=== PATIENT | female | born 1965 | race Caucasian/White ===

== ENCOUNTER 2017-06-24 09:13 | Inpatient (IN) | payer BC ==
[2017-06-07 12:49] VITALS: BMI 32.0
--- NOTE | 2017-06-07 13:32 | PAT Medication Instructions ---
Service Date Jun 07, 2017. Current Home Medication List Alprazolam (Xanax), 0.5 MG PO TID PRN for Anxiety/Agitation Atorvastatin (Lipitor), 1 TAB PO QAM Gabapentin (Neurontin), 300 MG PO TID PRN for Pain Hydrocodone/Acetaminophen 10MG/325MG ([place] 10MG/325MG), 1 TAB PO Q8 PRN for Pain Levothyroxine Sodium (Synthroid), 1 TAB PO QAM Lisinopril/Hctz (Zestoretic 20MG/25MG), 1 TAB PO QAM Topiramate (Topamax), 1 TAB PO BID Venlafaxine Hcl (Effexor), 75 MG PO QAM Venlafaxine Hcl (Effexor Extended Rel), 1 CAP PO QAM Medication Instructions For Your Scheduled Surgery - Hold the following medications the morning of surgery: Lisinopril/Hctz (Zestoretic 20MG/25MG), 1 TAB PO QAM - Take the following medications the morning of surgery with a sip of water OTHERWISE NOTHING TO EAT OR DRINK AFTER MIDNIGHT: Gabapentin (Neurontin), 300 MG PO TID PRN for Pain Hydrocodone/Acetaminophen 10MG/325MG ([place] 10MG/325MG), 1 TAB PO Q8 PRN for Pain ( may take if needed up to 4 hours prior to surgery) Atorvastatin (Lipitor), 1 TAB PO QAM Levothyroxine Sodium (Synthroid), 1 TAB PO QAM Venlafaxine Hcl (Effexor), 75 MG PO QAM Venlafaxine Hcl (Effexor Extended Rel), 1 CAP PO QAM Topiramate (Topamax), 1 TAB PO BID Alprazolam (Xanax), 0.5 MG PO TID PRN for Anxiety/Agitation - Take the following medications as scheduled the night before surgery: Gabapentin (Neurontin), 300 MG PO TID PRN for Pain Hydrocodone/Acetaminophen 10MG/325MG ([place] 10MG/325MG), 1 TAB PO Q8 PRN for Pain Topiramate (Topamax), 1 TAB PO BID Alprazolam (Xanax), 0.5 MG PO TID PRN for Anxiety/Agitation If you have any questions please call us at [phone] or [phone] or [phone]
[2017-06-07 14:13] LABS: BASO % 1.2 %; BASO ABS # 0.07 K/uL (0-0.2); COMPLETE YES; HEMATOCRIT 38.3 % (37-47); IG% 0.2 %; LYMPH % 33.2 %; LYMPH ABS # 1.92 K/uL (1.2-3.4); MEAN CELL VOLUME 95.3 fL (80-100); MEAN CORPUSCULAR HEMOGLOBIN 31.6 pg (25-34); MEAN CORPUSCULAR HGB CONC 33.2 g/dl (32-36); MEAN PLATELET VOLUME 9.3 fL (7.4-10.4); MONO % 9.2 %; NEUT % 52.2 %; PLATELET COUNT 398 K/uL (130-400); RED BLOOD COUNT 4.02 M/uL (4.2-5.4); WHITE BLOOD COUNT 5.78 K/uL (4.8-10.8)
--- NOTE | 2017-06-07 14:13 | DIAGNOSTIC IMAGING REPORT ---
CHEST 2 VIEWS ROUTINE CLINICAL HISTORY: 51 years-old Female presenting with preoperative assessment.. TECHNIQUE: PA and lateral views of the chest were obtained. COMPARISON: None. FINDINGS: Cardiomediastinal silhouette normal. Lungs and pleural spaces clear. Osseous structures and upper abdomen normal. IMPRESSION: 1. No acute cardiopulmonary disease. Electronically signed by: Sukhdev Hall 06/07/2017 2:11 PM Dictated Date/Time: 06/07/2017 2:11 PM
[2017-06-07 14:40] LABS: URINE APPEARANCE CLEAR (CLEAR); URINE BILIRUBIN NEG (NEG); URINE COLOR YELLOW; URINE EPITHELIAL CELL AUTO >30 /lpf (0-5); URINE NITRITE NEG (NEG); URINE PH 7.5 (4.5-7.5); URINE SPECIFIC GRAVITY 1.012 (1.000-1.030); UROBILINOGEN NEG (NEG)
[2017-06-07 14:48] LABS: MANUAL MICROSCOPIC REQUIRED? NO; REVIEW REQ? NO
[2017-06-07 15:31] LABS: CALCIUM 9.2 mg/dl (8.5-10.1); CREATININE 1.1 mg/dl (0.60-1.20); POTASSIUM 3.6 mmol/L (3.5-5.1)
[~2017-06-24] VITALS: Ht 160 cm; Wt 83.1 kg
[2017-06-24] VITALS (11 sets, daily range): BP systolic 86–130; BP diastolic 47–74; PULSE 62–96; TEMP 36.4–37; O2SAT 95–100; Ht 160 cm; Wt 83.1 kg
[~2017-06-24 09:13] MED LIST: ALPR-411 PO; ATOR10TA88 PO; CEFAZOLIN 2000 MG/60 ML D5W IV SCH; GABA-113 PO; HYDR-4079 PO; LACTATED RINGER'S 1000ML 1,000 ML IV SCH; LEVO100T PO; LISI-788 PO; TOPI50TA16 PO; VENL150C56 PO; VENL75TA4 PO
--- NOTE | 2017-06-24 10:15 | History & Physical Bridge Note ---
H&P Re-Evaluation Bridge Note: I have examined the patient, reviewed the History & Physical and in the interval since the performance of the History & Physical I have noted the following changes of clinical significance: No changes noted
[2017-06-24] MEDS ORDERED: MIDAZOLAM HCL 1 MG/ML 2ML VIAL ONE (10:16)
--- NOTE | 2017-06-24 10:16 | History and Physical ---
History & Physical Date Jun 24, 2017. Chief Complaint back and leg pain History of Present Illness The patient is a 51 year old female with complaints of Additional History Hepatic Disease: No Endocrine Disorder: No Kidney Disease: No Hypertension: Yes Heart Disease: No Bleeding Tendencies: No Infectious Diseases: No Allergies Coded Allergies: No Known Allergies (Unverified , 06/24/17) Home Medications Scheduled Atorvastatin (Lipitor), 1 TAB PO QAM Levothyroxine Sodium (Synthroid), 1 TAB PO QAM Lisinopril/Hctz (Zestoretic 20MG/25MG), 1 TAB PO QAM Topiramate (Topamax), 1 TAB PO BID Venlafaxine Hcl (Effexor), 75 MG PO QAM Venlafaxine Hcl (Effexor Extended Rel), 1 CAP PO QAM Scheduled PRN Alprazolam (Xanax), 0.5 MG PO TID PRN for Anxiety/Agitation Gabapentin (Neurontin), 300 MG PO TID PRN for Pain Hydrocodone/Acetaminophen 10MG/325MG ([place] 10MG/325MG), 1 TAB PO Q8 PRN for Pain Physical Examination Skin: warm/dry, no rash Eyes: normal inspection, EOMI, sclerae normal ENT: normal ENT inspection, pharynx normal Head: normocephalic, atraumatic Neck: supple, no adenopathy, trachea midline Respiratory/Chest: lungs clear, normal breath sounds, no respiratory distress Cardiovascular: regular rate, rhythm, no edema, no murmur Abdomen / GI: normal bowel sounds, non tender Back: normal inspection Extremities: normal inspection, normal range of motion Neurologic/Psych: no motor/sensory deficits, alert, normal reflexes, oriented x 3 Diagnosis Lumbar stenosis Plan of Treatment Lumbar decompression fusion L4 5 L5-S1
[2017-06-24] MEDS ORDERED: FENTANYL CITRATE INJ 50 MCG/1 ML 2 ML VIAL ONE ×4 (10:17→12:43)
[2017-06-24] MEDS ORDERED: BACITRACIN 50000 UNIT VIAL ONE (10:40)
[2017-06-24] MEDS ORDERED: SODIUM CHLORIDE 0.9% PF 50 ML VIAL ONE (10:40)
[2017-06-24] MEDS ORDERED: BUPIVACAINE/EPINEPHRINE 0.5% MPF 1:200,000 10 ML VIAL ONE (10:40)
[2017-06-24] MEDS ORDERED: PROMETHAZINE HCL INJ 12.5 MG in SODIUM CHLORIDE 0.9% 50ML 50 ML IV PRN ×2 (10:45→12:45)
[2017-06-24] MEDS ORDERED: HYDROmorphone INJ 1 MG/ML SYR IV PRN (10:45)
[2017-06-24] MEDS ORDERED: ATROPINE SULFATE 0.1 MG/ML 5ML SYR IV PRN (10:45)
[2017-06-24] MEDS ORDERED: ONDANSETRON INJ 2 MG/ML 2 ML VIAL IV PRN (10:45)
[2017-06-24] MEDS ORDERED: EpHEDrine SULFATE INJ 50 MG/ML AMP IV PRN (10:45)
[2017-06-24] MEDS ORDERED: HYDROmorphone INJ 2 MG/ML SYR/VIAL ONE (11:23)
[2017-06-24] MEDS ORDERED: ROCURONIUM BROMIDE 10 MG/ML 5 ML VIAL ONE (11:46)
[2017-06-24] MEDS ORDERED: LIDOCAINE HCL 2% 2 ML VIAL (20MG/ML) ONE (11:46)
[2017-06-24] MEDS ORDERED: PROPOFOL IV EMULSION 10 MG/ML 20 ML VIAL IV ONE (11:46)
[2017-06-24] MEDS ORDERED: ESMOLOL HCL 10 MG/ML 10 ML VIAL ONE (11:46)
[2017-06-24] MEDS ORDERED: DEXAMETHASONE SOD INJ 4 MG/ML VIAL ONE (11:46)
[2017-06-24] MEDS ORDERED: LABETALOL HCL IV 5 MG/ML 20ML IV ONE (11:46)
[2017-06-24] MEDS ORDERED: FLOSEAL HEMOSTATIC MATRIX 10ML TOP ONE (12:30)
[2017-06-24] MEDS ORDERED: SODIUM CHLORIDE 0.9% 1000ML 1,000 ML IV SCH ×2 (12:40→23:45)
[2017-06-24] MEDS ORDERED: ACETAMINOPHEN IV 100 ML IV PRN (12:45)
[2017-06-24] MEDS ORDERED: DO NOT ADMINISTER PNEUMOCOCCAL VACCINE PRN ×2 (12:45)
[2017-06-24] MEDS ORDERED: ACETAMINOPHEN 500 MG TAB PO PRN (12:45)
[2017-06-24] MEDS ORDERED: hydrOXYzine HCL 25 MG TAB PO PRN (12:45)
[2017-06-24] MEDS ORDERED: FAMOTIDINE 20 MG TAB PO PRN (12:45)
[2017-06-24] MEDS ORDERED: HYDROmorphone INJ 0.5 MG/0.5 ML SYR IV PRN (12:45)
[2017-06-24] MEDS ORDERED: ALUMINUM/MAGNESIUM SUSP 30 ML UDC PO PRN (12:45)
[2017-06-24] MEDS ORDERED: METOCLOPRAMIDE HCL INJ 5 MG/ML 2 ML VIAL IV PRN (12:45)
[2017-06-24] MEDS ORDERED: MAGNESIUM HYDROXIDE SUSP 30 ML UDC PO PRN (12:45)
[2017-06-24] MEDS ORDERED: SOD PHOSPHATE/SOD BIPHOSPHATE ENEMA 132 ML BTL PR PRN (12:45)
[2017-06-24] MEDS ORDERED: DO NOT ADMINISTER FLU VACCINE PRN ×3 (12:45)
[2017-06-24] MEDS ORDERED: GABAPENTIN 300 MG CAP PO PRN (12:45)
[2017-06-24] MEDS ORDERED: DC PCA PRN (12:45)
[2017-06-24] MEDS ORDERED: LORAZEPAM INJ 0.5 MG in SYRINGE 0 ML IV PRN (12:45)
[2017-06-24] MEDS ORDERED: ALPRAZOLAM 0.5 MG TAB PO PRN (12:45)
[2017-06-24] MEDS ORDERED: NALOXONE HCL 0.4 MG/1 ML VIAL/CARP IV PRN ×2 (12:45)
[2017-06-24] MEDS ORDERED: BISACODYL 10 MG SUPP PR PRN (12:45)
--- NOTE | 2017-06-24 12:48 | [facility] Operative Report ---
Operative Report Operative Date Jun 24, 2017. Pre-Operative Diagnosis Spinal Stenosis Post-Operative Diagnosis Spinal Stenosis Procedure(s) Performed #1 lumbar decompression medial facetectomy foraminotomy L4 5 L5-S1. #2 posterior spinal fusion L4 5 L5-S1. #3 posterior segmental instrumentation L4 5 L5-S1. #4 interbody fusion L5-S1. #5 placement of peek cage 12 x 22 mm L5-S1. #6 placement of locally harvested morcellized autograft posterior gutters. #7 placement infuse collagen sponge combined Master graft in the posterior lateral gutters Della bone graft in the interbody space. Surgeon Dr. Donald Lynn Locator Surgeon(s) Vanesa Carbajal PA-C Findings Spinal stenosis with herniated nucleus pulposus. Specimens none per surgeon Description of Procedure Patient was met with preoperatively case discussed all questions are dressed. Patient was then taken to the operative suite after undergoing intubation placed in the prone position on the Blade table on top of the Kenny frame. Lumbar spine prepped and draped no sterile fashion. Sharp dissection with the assistance of Bovie cautery performed onto an exposing the lamina and transverse processes of L4-L5 and the sacral alar bilaterally. From a caudal to cephalad fashion complete laminectomy of L5 and L4 performed including medial facetectomies foraminotomies. We also dressed massive disc herniation L 5 S1 on the right. Pedicle screws were then placed in L4 L5 S1 levels bilaterally with assistance of fluoroscopy Lipo placed sized xiomy placed. Through a transforaminal approach on the right complete discectomy of L5-S1 was performed and plate created to subcortical bleeding bone and a 12 x 22 mm peek cage filled with Della bone graft tapped in position. Brought in and compressed locked and final position bilaterally. Transverse processes of L4 L5 S1 levels burred to subcortical bleeding bone. Infuse bone sponge mask graft locally harvested morcellized autograft placed in the posterior lateral gutters. 15 round EARLENE drain inserted. Incision closed with 1 Vicryl in the fascia 2-0 Vicryl subcutaneously and for Monocryl for final skin closure. Sterile dressing and Steri-Strips placed. Patient awakened taken to PACU stable condition. Please note Vanesa Monroe present throughout the entire procedure involved in patient positioning complex portions of the procedure and final skin closure. I attest to the content of the Intraoperative Record and any orders documented therein. Any exceptions are noted below.
--- NOTE | 2017-06-24 12:53 | DIAGNOSTIC IMAGING REPORT ---
LUMBAR SPINE 2 OR 3 VIEW CLINICAL HISTORY: 51 years-old Female presenting with L4-S1 DECOMPRESSION. TECHNIQUE: 2 fluoroscopic spot image(s) obtained as part of intraoperative procedure. COMPARISON: None. FINDINGS/IMPRESSION: Frontal and lateral views of the lumbar spine demonstrate bilateral transpedicular screw and xiomy fixation of L4-S1 with interbody spacer at L5-S1. Anatomic alignment grossly maintained. Please see surgical report for further details. Fluoroscopy dosage (mGy): Not available. Fluoroscopy time: 23.6 seconds. Number of fluoroscopic spot images: 2. Electronically signed by: Sukhdev Hall M.D. 06/24/2017 12:51 PM Dictated Date/Time: 06/24/2017 12:51 PM
[2017-06-24] MEDS ORDERED: HYDROmorphone HCL 0.5MG/ML 50 ML CASSETTE ONE (12:58)
[2017-06-24] MEDS: FENTANYL CITRATE INJ 50 MCG/1 ML 2 ML VIAL IV PRN ×4 (13:10→13:31)
[2017-06-24] MEDS ORDERED: NEOSTIGMINE METHYLSULFATE 1 MG/ML 10ML VIAL ONE (13:44)
[2017-06-24] MEDS ORDERED: ONDANSETRON INJ 2 MG/ML 2 ML VIAL ONE (13:44)
[2017-06-24] MEDS ORDERED: PHENYLEPHRINE 100MCG/ML 5ML SYR ONE (13:44)
[2017-06-24] MEDS ORDERED: GLYCOPYRROLATE INJ 0.2 MG/ML VIAL ONE (13:44)
[2017-06-24] MEDS ORDERED: KETOROLAC TROMETHAMINE 30 MG/ML VIAL ONE (13:44)
--- NOTE | 2017-06-24 13:44 | Anesthesiology Progress Note ---
Anesthesia Post Op Note Date & Time Jun 24, 2017 at 13:43 Vital Signs Pain Intensity: 5 Vital Signs Past 12 Hours Date Time Temp Pulse Resp B/P (MAP) Pulse Ox O2 Delivery O2 Flow Rate FiO2 06/24/17 13:35 85 14 94/52 (64) 100 Nasal Cannula 4 06/24/17 13:25 87 12 111/64 100 Nasal Cannula 4 06/24/17 13:15 84 12 98/51 (69) 99 Oxymask 8 06/24/17 13:05 81 20 118/68 100 Oxymask 10 06/24/17 12:56 36.4 88 16 128/96 95 Oxymask 10 06/24/17 10:09 36.9 75 18 130/74 100 Room Air Notes Mental Status: alert / awake / arousable, participated in evaluation Pt Amnestic to Procedure: Yes Nausea / Vomiting: adequately controlled Pain: adequately controlled Airway Patency, RR, SpO2: stable & adequate BP & HR: stable & adequate Hydration State: stable & adequate Anesthetic Complications: no major complications apparent
[2017-06-24] MEDS: HYDROmorphone HCL 0.5MG/ML 50 ML CASSETTE IV PRN ×3 (14:03→22:47)
[2017-06-24] MEDS: LACTATED RINGER'S 1000ML 1,000 ML IV SCH ×2 (14:38→21:27)
[2017-06-24] MEDS: LISINOPRIL/HCTZ 20/25MG TAB PO SCH (15:30)
[2017-06-24] MEDS: CEFAZOLIN IV 2,000 MG in DEXTROSE 5% 50ML 50 ML IV SCH (18:14)
[2017-06-24] MEDS: DEXAMETHASONE INJ 6 MG in SYRINGE 0 ML IV SCH (18:15)
[2017-06-24] MEDS: ATORVASTATIN 10 MG TAB PO SCH (21:27)
[2017-06-24] MEDS: DOCUSATE SODIUM/SENNA 50/8.6MG TAB PO SCH (21:28)
[2017-06-24] MEDS: TOPIRAMATE 25 MG TAB PO SCH (21:28)
[2017-06-24] MEDS ORDERED: NURSING VERBAL MED ORDER ONE (23:30)
[2017-06-24] MEDS ORDERED: SODIUM CHLORIDE 0.9% 1000ML 1,000 ML IV ONE (23:45)
[2017-06-25] MEDS ORDERED: LACTATED RINGER'S 1000ML 1,000 ML IV ONE (00:15)
[2017-06-25] MEDS: DEXAMETHASONE INJ 6 MG in SYRINGE 0 ML IV SCH ×2 (01:33→10:39)
[2017-06-25] MEDS: CEFAZOLIN IV 2,000 MG in DEXTROSE 5% 50ML 50 ML IV SCH (01:33)
[2017-06-25 03:12] VITALS: BP 116/76; PULSE 77; TEMP 36.8; O2SAT 91
[2017-06-25] MEDS ORDERED: SODIUM CHLORIDE 0.9% 1000ML 1,000 ML IV SCH (03:45)
[2017-06-25] MEDS: LACTATED RINGER'S 1000ML 1,000 ML IV SCH (04:51)
[2017-06-25] MEDS ORDERED: HYDROmorphone INJ 0.5 MG/0.5 ML SYR IV PRN (06:00)
[2017-06-25] MEDS ORDERED: DC PCA SCH (06:00)
[2017-06-25] MEDS ORDERED: HYDROmorphone INJ 1 MG/ML SYR IV PRN (06:00)
[2017-06-25 06:02] LABS: BASO % 0.1 %; BASO ABS # 0.01 K/uL (0-0.2); COMPLETE YES; HEMATOCRIT 30.9 % (37-47); IG% 0.2 %; LYMPH % 6.2 %; LYMPH ABS # 0.91 K/uL (1.2-3.4); MEAN CELL VOLUME 95.1 fL (80-100); MEAN CORPUSCULAR HGB CONC 33.7 g/dl (32-36); MEAN PLATELET VOLUME 9.8 fL (7.4-10.4); MONO % 4.3 %; NEUT % 89.2 %; PLATELET COUNT 303 K/uL (130-400); RED BLOOD COUNT 3.25 M/uL (4.2-5.4); WHITE BLOOD COUNT 14.65 K/uL (4.8-10.8)
[2017-06-25] MEDS: LEVOTHYROXINE 100 MCG TAB PO SCH (06:05)
[2017-06-25] MEDS ORDERED: NURSING VERBAL MED ORDER ONE (06:15)
[2017-06-25 06:42] LABS: CALCIUM 8.3 mg/dl (8.5-10.1); CREATININE 1.5 mg/dl (0.60-1.20); POTASSIUM 3.7 mmol/L (3.5-5.1)
[2017-06-25] MEDS ORDERED: RXC5 PO (07:39)
--- NOTE | 2017-06-25 07:40 | Discharge Instructions ---
Discharge Instructions Date of Service Jun 25, 2017. Admission Reason for Admission: Spinal Stenosis Discharge Discharge Diagnosis / Problem: lumbar stenosis Discharge Goals Goal(s): Improve function Activity Recommendations Activity Limitations: per Instructions/Follow-up section . Instructions / Follow-Up Instructions / Follow-Up ACTIVITY RECOMMENDATIONS: SELF CARE INSTRUCTIONS AFTER THORACIC/LUMBAR FUSIONS 1. You may walk to your tolerance. It is good exercise for your legs and back. Expect some back and intermittent leg aches and pains. 2. You may perform "counter-top" level activities (make a sandwich, anibal with a project, etc.). 3. No bending or lifting of more than 10 pounds or back twisting of any nature (roll like a log when turning in bed). 4. You may ride in a car for 20-30 minutes at a time. No driving until after your first visit with your doctor. 5. Frequent changes of position and restricting sitting to 30 minutes at a time will help limit the amount of back spasms and stiffness you may experience. 6. You may discontinue the use of ambulatory aids (cane, crutches, etc.) once your strength and confidence allow. 7. You may embedded software development engineer the shower and let water strike your incision when you arrive home at least once daily. Do not take a tub bath, sit in a hot tub or go into a swimming pool until after your first recheck in the office. SPECIAL CARE INSTRUCTIONS: VERY IMPORTANT TO READ AND REVIEW A. Your surgical incision has been closed with a cosmetic suture under the skin that will dissolve in about 6 weeks. In 14 days, you can use a pair of clean scissors and cut the suture that is left outside of the skin at the ends of your incision. 1. The small skin tapes can be removed 7 days after surgery if they have not fallen off by that point. 2. You may keep the wound open to air as much as possible to promote healing after post-op day number 5 unless told otherwise by your doctor. 3. If you think the wound looks like it is becoming infected (redness or worsening drainage) and/or you are experiencing fever, chill or worsening back pain and muscle spasms, contact the office so that we may evaluate you as soon as possible. B. Complications are uncommon, but please contact us if you have any signs or symptoms of: 1. wound infection (fever higher than 102.5 degrees F, redness, separation of wound, drainage, or increasing pain from the incision) 2. blood clots in legs (pain, swelling, redness and warmth in legs) 3. urinary tract infection (fever higher than 102.5 degrees F, burning upon urination or increased frequency of urination) 4. nerve problems (inability to walk on your toes or heels, numbness, loss of bowel or bladder control) 5. any other symptoms that concern you C. Please call the office at if you have any concerns or questions about your operation or recovery. D. No smoking! Smoking drastically decreases the chance of a solid fusion. E. Do not take any anti-inflammatory medications (Indocin, Advil, Motrin, Aspirin, Naprosyn, etc.) as these may inhibit the chance of a solid fusion. Tylenol is okay to take for pain. MANAGING PAIN AFTER SPINAL SURGERY 1. Narcotic medication is intended for short-term use and will be provided for surgical pain. Surgical pain usually lasts for a period of 4-6 weeks. Narcotic medication includes Percocet, Vicodin, Darvocet, Tylenol #3 or Lortab. 2. Longer-term pain is more appropriately treated with non-narcotic medication such as Tylenol ES. 3. Muscle spasm is not appropriately treated with narcotics. Muscle relaxers such as Soma, Flexeril or Skelaxin can be used along with Tylenol ES. 4. Remember that we all live with some "aches and pains". This is not unusual or uncommon after an injury or as we get older. a. Back pain is expected and may include muscle spasms for 4 to 6 weeks after surgery. The pain should gradually improve. If the pain worsens for no apparent reason, please contact the office. b. Intermittent leg pain may also be experienced and should not be concerned about unless it worsens for no apparent reason. If so, please contact the office. 5. We will provide appropriate medication within the normal guidelines of their prescribed use. We will also be very cautious and aware of potential abuse and extended duration of patients' medication needs. a. Pain medications are for your comfort and to assist with sleep and rest so that the tissue can heal. They are not provided in order to return to normal activity and should not be used through the day. To do so or worsening pain at night can result from ongoing tissue damage and development of tolerance to the prescribed medicine. 6. Please allow 2-3 days to process refills. Prescriptions will not be mailed but must be picked up at the office. FOLLOW UP VISIT: Keep your scheduled follow-up appointment. Any questions, please call the office at . Current Hospital Diet Patient's current hospital diet: Regular Diet Discharge Diet Recommended Diet: Regular Diet Procedures Procedures Performed: #1 lumbar decompression medial facetectomy foraminotomy L4 5 L5-S1. #2 posterior spinal fusion L4 5 L5-S1. #3 posterior segmental instrumentation L4 5 L5-S1. #4 interbody fusion L5-S1. #5 placement of peek cage 12 x 22 mm L5-S1. #6 placement of locally harvested morcellized autograft posterior gutters. #7 placement infuse collagen sponge combined Master graft in the posterior lateral gutters Della bone graft in the interbody space. Pending Studies Studies pending at discharge: no Medical Emergencies . Who to Call and When: Medical Emergencies: If at any time you feel your situation is an emergency, please call 911 immediately. . Non-Emergent Contact Non-Emergency issues call your: Primary Care Provider . "Provider Documentation" section prepared by Donald Lynn. . VTE Core Measure Inpt VTE Proph given/why not?: Betsy Dailey, SCD's
[2017-06-25 07:51] VITALS: BP 102/64; PULSE 92; TEMP 36.4; O2SAT 95
[2017-06-25 08:15] VITALS: O2SAT 95
[2017-06-25] MEDS: TOPIRAMATE 25 MG TAB PO SCH ×2 (08:35→21:12)
[2017-06-25] MEDS: VENLAFAXINE HCL 50 MG TAB PO SCH (08:36)
[2017-06-25] MEDS: VENLAFAXINE HCL XR 150 MG CAPXR PO SCH (08:36)
[2017-06-25] MEDS: LISINOPRIL/HCTZ 20/25MG TAB PO SCH (08:37)
[2017-06-25] MEDS: OXYCODONE HCL IR 5 MG TAB (IMMEDIATE RELEASE) PO PRN ×3 (08:40→20:17)
[2017-06-25 11:49] VITALS: BP 94/64; PULSE 60; TEMP 37.1; O2SAT 97
[2017-06-25 15:07] VITALS: BP 121/80; PULSE 67; TEMP 36.7; O2SAT 100
--- NOTE | 2017-06-25 15:42 | Progress Note ---
Progress Note Date of Service Jun 25, 2017. Progress Note Patient is doing very well postoperatively. Right leg pain markedly improved. She is complaining halls without difficulty. Vital signs are stable strength is intact bilateral lower extremities. Assessment status post lumbar decompression fusion replant this time will continue physical therapy advance her bowel regimen anticipate possible home tomorrow.
[2017-06-25] MEDS ORDERED: KETOROLAC TROMETHAMINE 30 MG/ML VIAL IV PRN (15:45)
[2017-06-25] MEDS: ONDANSETRON INJ 2 MG/ML 2 ML VIAL IV PRN (20:17)
[2017-06-25] MEDS: LORAZEPAM 0.5 MG TAB PO PRN (20:18)
[2017-06-25] MEDS: ATORVASTATIN 10 MG TAB PO SCH (21:12)
[2017-06-25] MEDS: DOCUSATE SODIUM/SENNA 50/8.6MG TAB PO SCH (21:12)
[2017-06-25 23:23] VITALS: BP 115/74; PULSE 67; TEMP 37.4; O2SAT 97
[2017-06-26] MEDS: OXYCODONE HCL IR 5 MG TAB (IMMEDIATE RELEASE) PO PRN ×3 (04:22→12:56)
[2017-06-26] MEDS: POLYETHYLENE (MIRALAX) 17 GM PACK PO SCH ×2 (05:45→11:54)
[2017-06-26] MEDS: LEVOTHYROXINE 100 MCG TAB PO SCH (05:45)
[2017-06-26 07:15] VITALS: BP 111/72; PULSE 75; TEMP 37.1; O2SAT 96
[2017-06-26] MEDS: LORAZEPAM 0.5 MG TAB PO PRN (08:30)
[2017-06-26] MEDS: LISINOPRIL/HCTZ 20/25MG TAB PO SCH (08:31)
[2017-06-26] MEDS: VENLAFAXINE HCL 50 MG TAB PO SCH (08:31)
[2017-06-26] MEDS: VENLAFAXINE HCL XR 150 MG CAPXR PO SCH (08:31)
[2017-06-26] MEDS: TOPIRAMATE 25 MG TAB PO SCH (08:32)
[2017-06-26] MEDS: ONDANSETRON INJ 2 MG/ML 2 ML VIAL IV PRN (11:58)
[2017-06-26 12:30] VITALS: BP 111/72; PULSE 75; TEMP 37.1; O2SAT 96
--- NOTE | 2017-06-26 15:06 | Discharge Summary ---
Orthopedic Discharge Summary Admission Date/Reason Jun 24, 2017 at 12:44 Spinal Stenosis. Discharge Date/Disposition Jun 26, 2017 Home Diagnosis Principal Diagnosis: Spinal stenosis Admission Physical Exam As per Admitting History & Physical. Hospital Course H and underwent lumbar decompression fusion tolerated this well was taken to the orthopedic floor postoperatively. Postoperative leash her leg pain was markedly improved. She tolerated physical therapy advance appropriate. Subsequently discharged home postop day 2. Discharge orders and instructions found on the chart for further review. Discharge Instructions Please refer to the electronic Patient Visit Report (Discharge Instructions) for additional information.
== END 2017-06-26 13:40 | disposition home or self-care (01) | DRG 460 ==
LOC: C.ACU 09:13 → C.3E 12:44 → ENRESERV 13:44
PROVIDERS: ADMIT Orthopaedic Surgery Orthopaedic Surgery of the Spine; ATTEND Orthopaedic Surgery Orthopaedic Surgery of the Spine
PROC: 0SG30A1 (ICD-10-PCS; principal; 2017-06-24 11:15)
PROC: 0ST40ZZ Resection of Lumbosacral Disc, Open Approach (ICD-10-PCS; principal; 2017-06-24 11:15)
PROC: 0SG00A1 (ICD-10-PCS; principal; 2017-06-24 11:15)
DX: M48.06 Spinal stenosis, lumbar region (principal); M51.26 Other intervertebral disc displacement, lumbar region; Z79.899 Other long term (current) drug therapy